=== PATIENT | female | born 1970 | race African-American/Black ===

== ENCOUNTER 2019-06-18 16:01 | Emergency (ER) | payer MEDICAID ==
[~2019-06-18] VITALS: Ht 152.4 cm; Wt 60.0 kg
[2019-06-18 16:03] VITALS: BP 171/85
== END 2019-06-18 20:45 | disposition left against medical advice (07) ==
LOC: ER 16:01
DX: Z53.21 Procedure and treatment not carried out due to patient leaving prior to being seen by health care provider (principal)